=== PATIENT | male | born 1950 | race Caucasian/White ===

== ENCOUNTER 2019-06-14 07:27 | Emergency (ER) | payer MEDICARE, BC ==
--- NOTE | 2019-06-14 07:42 | UC ---
Respiratory Complaint HPI - HPI Summary HPI Summary: 68 yo man with hypertension, with one week of cough with some production, no associated fever and not short of breath. Cough improved last night with use of mucinex. Headache this morning, but no sore throat or ear pain. - History of Current Complaint Stated Complaint: COUGH Time Seen by Provider: 06/14/19 07:41 Hx Obtained From: Patient Onset/Duration: Gradual Onset, Lasting Days Timing: Intermittent Episodes Severity Initially: Mild Severity Currently: Mild Character: Cough: Productive Aggravating Factors: Recumbent Position Alleviating Factors: OTC Meds - mucinex helps Associated Signs And Symptoms: Positive: Calf Pain, URI. Negative: Dyspnea, Fever, Chills, Wheezing, Hemoptysis, Dizziness, Nasal Congestion, Hoarseness, Sinus Discomfort - Allergies/Home Medications Allergies/Adverse Reactions: Allergies Allergy/AdvReac Type Severity Reaction Status Date / Time No Known Allergies Allergy Verified 06/14/19 07:43 Home Medications: Home Medications Ibuprofen [Advil] 600 mg PO ONCE PRN 06/14/19 [History Confirmed 06/14/19] guaiFENesin [Mucinex] 1 tab PO ONCE PRN 06/14/19 [History Confirmed 06/14/19] hydroCHLOROthiazide [Hydrochlorothiazide] 1 tab PO DAILY 06/14/19 [History Confirmed 06/14/19] PMH/Surg Hx/FS Hx/Imm Hx Cardiovascular History: Hypertension - Surgical History Surgical History: None - Family History Known Family History: Positive: Hypertension, Other - mother of stroke, father committed suicide. - Social History Occupation: Employed Part-time - does [employer], partially retired Alcohol Use: Occasionally Substance Use Type: None Smoking Status (MU): Never Smoked Tobacco Review of Systems All Other Systems Reviewed And Are Negative: Yes Constitutional: Positive: Negative Skin: Positive: Negative Eyes: Positive: Negative ENT: Positive: Negative Respiratory: Positive: Cough. Negative: Shortness Of Breath Cardiovascular: Negative: Palpitations, Chest Pain Gastrointestinal: Positive: Negative Genitourinary: Positive: Negative Motor: Positive: Negative Neurovascular: Positive: Negative Musculoskeletal: Positive: Negative Neurological: Positive: Headache Psychological: Positive: Negative Is Patient Immunocompromised?: No Physical Exam Triage Information Reviewed: Yes Appearance: Well-Appearing, No Pain Distress Eyes: Positive: Conjunctiva Clear ENT: Positive: Pharynx normal, TMs normal Neck: Positive: Supple, Nontender, No Lymphadenopathy Respiratory: Positive: Lungs clear, Normal breath sounds, No respiratory distress. Negative: Crackles, Rhonchi, Wheezing Cardiovascular: Positive: RRR, No Murmur Musculoskeletal Exam: Normal Neurological Exam: Normal Psychological Exam: Normal Skin Exam: Normal Respiratory Course/Dx - Course Course Of Treatment: Symptomatic treatment of viral respiratory illness. - Differential Dx/Diagnosis Differential Diagnosis/HQI/PQRI: Asthma, Influenza, Lower Resp Infection, Sinusitis Provider Diagnosis: URI, acute Discharge ED - Sign-Out/Discharge Documenting (check all that apply): Patient Departure All imaging exams completed and their final reports reviewed: No Studies - Discharge Plan Condition: Stable Disposition: HOME Patient Education Materials: Upper Respiratory Infection (ED) Referrals: Ike Moise MD [Primary Care Provider] - Additional Instructions: Your exam shows normal lung sounds and no evidence of bronchitis or pneumonia. Continue symptomatic treatment, anticipating that the cough will gradually resolve. Continue use of mucinex. Follow up if you develop fever or shortness of breath, or if the cough persists for more that 3 weeks. - Billing Disposition and Condition Condition: STABLE Disposition: Home
[2019-06-14 07:43] VITALS: BP 132/89
== END 2019-06-14 08:08 | disposition home or self-care (01) ==
LOC: UCEAST 07:27
DX: J06.9 Acute upper respiratory infection, unspecified (principal); I10 Essential (primary) hypertension
CPT/HCPCS: 99211; G0463